=== PATIENT | female | born 1965 | race Caucasian/White ===

== ENCOUNTER 2017-03-30 12:24 | Outpatient (CLI) ==
--- NOTE | 2017-03-30 13:34 | DI ---
Exam: Five x-rays of the cervical spine. Comparison: None available. Reason for exam: Pain. FINDINGS: Multilevel degenerative disease is seen within the cervical spine with straightening of t he cervical lordosis. Intervertebral body disc space height loss is seen most notably at C4-5, C5-6 , and C6-7. There is 2 mm of anterior listhesis of C3 on C4 and approximately 2 mm of anterior listh esis of C7 on T1. The prevertebral soft tissues are within normal limits. The dens appears intact on the Raymundo view with joint space narrowing. Impression: Multilevel degenerative disease with intervertebral body disc space height loss and listhesis. If c linical concern exists for radiculopathy, myelopathy, or ligamentous injury MRI may be performed.
--- NOTE | 2017-03-30 13:38 | DI ---
Exam: Three x-rays of the thoracic spine. Comparison: None available. Reason for exam: Pain. FINDINGS: Mild dextroscoliosis of the thoracic spine. Old granulomatous disease is seen within the lung parenchyma. No obvious fracture or listhesis. There is relative maintenance of the thoracic kyphotic curve. Impression: No acute fracture or listhesis in the thoracic spine with mild to moderate degenerative disease.
== END 2017-03-30 12:25 | disposition home or self-care (01) ==
LOC: RAD 12:24
PROVIDERS: ATTEND Physician Assistant
DX: M54.6 Pain in thoracic spine (principal); M54.2 Cervicalgia